=== PATIENT | male | born 1975 | race Caucasian/White ===

== ENCOUNTER → 2020-04-18 | Outpatient (CLI) | payer OTHER | LOC: CAT 08:26 | PROVIDERS: ATTEND Family Medicine | DX: Z13.6 Encounter for screening for cardiovascular disorders (principal); I25.10 Atherosclerotic heart disease of native coronary artery without angina pectoris; E78.00 Pure hypercholesterolemia, unspecified ==

== ENCOUNTER → 2020-05-01 | Outpatient (CLI) | payer BC, OTHER | LOC: ULTRA 08:24 | PROVIDERS: ATTEND Family Medicine | DX: K76.0 Fatty (change of) liver, not elsewhere classified (principal); K76.89 Other specified diseases of liver ==

== ENCOUNTER → 2020-12-19 | Outpatient (CLI) | payer OTHER | LOC: RAD 14:02 | PROVIDERS: ATTEND Family Medicine | DX: M54.6 Pain in thoracic spine (principal) ==

== ENCOUNTER → 2021-01-14 | Outpatient (CLI) | payer OTHER | LOC: MRI 13:51 | PROVIDERS: ATTEND Family Medicine | DX: K82.0 Obstruction of gallbladder (principal); K76.89 Other specified diseases of liver; R10.9 Unspecified abdominal pain; M54.6 Pain in thoracic spine ==